=== PATIENT | male | born 1975 | race Two or more races ===

== ENCOUNTER 2020-03-04 13:43 | Emergency (ER) | payer SELFPAY ==
[~2020-03-04] VITALS: Ht 165.1 cm; Wt 113.4 kg
[2020-03-04 14:09] VITALS: Ht 165.1 cm; Wt 113.4 kg
[2020-03-04 15:37] VITALS: BP 107/68
== END 2020-03-04 15:37 | disposition home or self-care (01) ==
LOC: ED 13:43
DX: H53.8 Other visual disturbances (principal)